=== PATIENT | male | born 1995 | race Caucasian/White ===

== ENCOUNTER 2019-03-01 22:30 | Inpatient (IN) | payer BC, MEDICAID ==
[~2019-03-01] VITALS: Ht 170.2 cm; Wt 57.5 kg
[~2019-03-01 22:30] MED LIST: ARIP10TA15 PO; DIVA500T4 PO; PROP10TA10 PO; TRAZ150T78 PO
[2019-03-02] MEDS ORDERED: acetaminophen 325mg tablet PO PRN ×2 (00:25)
[2019-03-02] MEDS ORDERED: magnesium hydroxide 30ml (MOM) UD suspension PO PRN (00:25)
[2019-03-02] MEDS ORDERED: hydrOXYzine 25 MG tablet PO PRN ×2 (00:25→15:00)
[2019-03-02] MEDS ORDERED: mag hydrox/Alum hydrox/simeth 30ml oral suspension PO PRN (00:25)
[2019-03-02] MEDS ORDERED: traZODone 150mg tablet PO ONE (00:25)
[2019-03-02] MEDS ORDERED: loperamide 2mg capsule PO PRN (00:25)
[2019-03-02 00:30] VITALS: BP 128/94
[2019-03-02] MEDS ORDERED: LORazepam 1 MG tablet PO PRN (00:35)
[2019-03-02] MEDS ORDERED: NICOTINE POLACRILEX 2 MG LOZENGE BC PRN (00:35)
--- NOTE | 2019-03-02 01:34 | NUR ---
Nursing Note: Pt. oriented to unit and call light, voices understanding. States he already had all of his HS medications prior to arrival. Denies S/I at this time and able to contract for safety. Two RN skin check completed and skin CDI, pt. denies any pain. Nicotine replacement patch present on rt. shoulder which pt. refuses to have removed at this time. Smoking cessation materials provided. Pt. resting comfortably, will monitor.
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
[2019-03-02] MEDS: aripiprazole 5mg tablet PO SCH ×2 (09:00→09:45)
[2019-03-02] MEDS: divalproex sodium 500mg tablet.DR PO SCH ×2 (09:45→20:14)
[2019-03-02 10:36] VITALS: BP 109/70
[2019-03-02] MEDS: propranolol 10mg tablet PO SCH ×2 (13:33→20:14)
[2019-03-02] MEDS ORDERED: cloNIDine 0.1 mg tablet PO PRN (15:00)
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
[2019-03-02 20:00] VITALS: BP 120/70
[2019-03-02] MEDS: traZODone 150mg tablet PO SCH (20:14)
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
[2019-03-03 08:00] VITALS: BP 125/72
[2019-03-03] MEDS: propranolol 10mg tablet PO SCH ×3 (08:08→20:56)
[2019-03-03] MEDS: divalproex sodium 500mg tablet.DR PO SCH ×2 (08:08→20:55)
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
[2019-03-03 19:55] VITALS: BP 112/68
[2019-03-03] MEDS: traZODone 150mg tablet PO SCH (20:55)
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
[2019-03-04 08:00] VITALS: BP 112/77
[2019-03-04] MEDS: propranolol 10mg tablet PO SCH ×2 (08:07→13:29)
[2019-03-04] MEDS: divalproex sodium 500mg tablet.DR PO SCH (08:07)
[2019-03-04] MEDS ORDERED: NICOTINE POLACRILEX 2 MG LOZENGE BC PRN (13:45)
[2019-03-04] MEDS ORDERED: CLON0.1T20 PO (13:56)
[2019-03-04] MEDS ORDERED: TRAZ150T78 PO (13:56)
[2019-03-04] MEDS ORDERED: DIVA500T4 PO (13:56)
--- NOTE | 2019-03-04 15:30 | NUR ---
DISCHARGE NOTE Pt came in after an attempt to kill himself by OD and a rope around his neck. During his admit pt was able to work with Dr. Reardon and discuss what led to his depression and suicide attempt. Pt has a strong support system with his parents who plan on picking him up today to take him home and will also be assisting him w/finding work and getting to his appointments. Pt discharged to his parents home. He has an appointment with a therapist for 03/07/19 and with a psychiatrist. Pt belongings and own medications signed out by tech and patient and all belongings returned w/his medicine. Pt intends to continue smoking when he leaves; declined smoking cessation resources and referrals.
== END 2019-03-04 15:30 | disposition home or self-care (01) | DRG 753 ==
LOC: ADULT MH 23:12
PROVIDERS: ADMIT Psychiatry & Neurology Psychiatry; ATTEND Psychiatry & Neurology Psychiatry
DX: F31.9 Bipolar disorder, unspecified (principal); F11.29 Opioid dependence with unspecified opioid-induced disorder; F39 Unspecified mood [affective] disorder; F19.90 Other psychoactive substance use, unspecified, uncomplicated; X83.8XXA Intentional self-harm by other specified means, initial encounter; F10.120 Alcohol abuse with intoxication, uncomplicated; F12.10 Cannabis abuse, uncomplicated; F17.210 Nicotine dependence, cigarettes, uncomplicated; T14.90XA Injury, unspecified, initial encounter; X58.XXXA Exposure to other specified factors, initial encounter; F14.90 Cocaine use, unspecified, uncomplicated; Z56.0 Unemployment, unspecified; Z88.1 Allergy status to other antibiotic agents; Z88.2 Allergy status to sulfonamides; Z88.8 Allergy status to other drugs, medicaments and biological substances; Z79.899 Other long term (current) drug therapy; Z87.820 Personal history of traumatic brain injury; Z81.8 Family history of other mental and behavioral disorders; Y93.89 Activity, other specified; Y92.89 Other specified places as the place of occurrence of the external cause; Y99.8 Other external cause status
CPT/HCPCS: Z7610